=== PATIENT | female | born 2005 | race Hispanic/Latino ===

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

== ENCOUNTER 2025-02-07 22:10 | Emergency (ER) | payer OTHER ==
[~2025-02-07] VITALS: Ht 160 cm; Wt 104.3 kg
[2025-02-08 00:07] LABS: BASOPHILS % 0.5 % (0.0-1.0); EOSINOPHILS % 1.3 % (0.0-6.0); LYMPHOCYTES % 27.1 % (18.0-39.1); MONOCYTES % 6.2 % (4.4-11.3); NEUTROPHILS % 64.4 % (38.7-80.0); RED CELL DISTRIBUTION WIDTH 14.1 % (11.7-14.4)
[2025-02-08 00:21] LABS: EST GLOMERULAR FILTRATION RATE 131.0 ML/MIN (>=60)
[2025-02-08] MEDS ORDERED: SODIUM CHLORIDE 0.9% 250ML 250 ML IV ONE (00:30)
[2025-02-08] MEDS ORDERED: SODIUM CHLORIDE 0.9% 250ML 250 ML ONE (02:17)
[2025-02-08] MEDS ORDERED: ACETAMINOPHEN 325 MG TAB ONE (02:17)
[2025-02-08 04:20] VITALS: PULSE 97; RESP 21; TEMP 98.7
[2025-02-08 04:44] VITALS: BP 122/68; PULSE 97; RESP 21; TEMP 98.7; O2SAT 100
== END 2025-02-08 04:38 | disposition short-term general hospital (02) ==
LOC: ER 22:52
DX: O03.1 Delayed or excessive hemorrhage following incomplete spontaneous abortion (principal); D50.0 Iron deficiency anemia secondary to blood loss (chronic); E28.2 Polycystic ovarian syndrome
CPT/HCPCS: 36415; 36430; 71045; 76830; 80053; 84702; 85025; 86850; 86900; 86920; 93005; 93976; 99284; J7050; P9016